=== PATIENT | male | born 1990 | race Caucasian/White ===

== ENCOUNTER → 2017-09-24 | Outpatient (CLI) | payer OTHER ==
--- NOTE | 2017-09-24 09:20 | CT ---
EXAMINATION TYPE: CT wrist LT wo con DATE OF EXAM: 09/24/2017 COMPARISON: NONE HISTORY: Left wrist pain CT DLP: 100.1 mGycm Automated exposure control for dose reduction was used. 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 Subchondral cysts are seen of the distal scaphoid pole. No acute fracture line is iden tified. Evaluation of the tendons and muscles are limited on CT. There is no evidence of tendon discontinuity . The patient's stated area of pain marked with a BB overlies compartment I containing the extensor p ollicis brevis and abductor pollicis longus tendons, however no gross abnormality on CT is identified of these tendons. No focal soft tissue swelling, inflammatory change within the subcutaneous soft ti ssues, or focal fluid collection is seen. IMPRESSION: 1. 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 2. THE PATIENT'S AREA OF PAIN IS LOCATED OVER COMPARTMENT I CONTAINING THE EXTENSOR POLLICIS BREVIS A ND ABDUCTOR POLLICIS LONGUS TENDONS, HOWEVER THESE TENDONS ARE POORLY EVALUATED ON CT AND BETTER EVAL UATED ON MR.
== END | disposition home or self-care (01) ==
LOC: RADCTMAIN 08:02
PROVIDERS: ATTEND Plastic Surgery
DX: S62.002D Unspecified fracture of navicular [scaphoid] bone of left wrist, subsequent encounter for fracture with routine healing (principal)

== ENCOUNTER 2017-10-05 16:05 | Emergency (ER) | payer OTHER ==
[2017-10-05 16:12] VITALS: BP 132/81; PULSE 84; RESP 20; TEMP 98.3
--- NOTE | 2017-10-05 16:21 | ED ---
URI HPI - General Chief Complaint: Upper Respiratory Infection Stated Complaint: Flu Symptoms Time Seen by Provider: 10/05/17 16:15 Source: patient, RN notes reviewed Mode of arrival: ambulatory Limitations: no limitations - History of Present Illness Initial Comments: 27-year-old male presents emergency Department chief complaint cough congestion fever. Patient states symptoms started yesterday did have an episode of vomiting yesterday no vomiting today. Patient states he took ibuprofen just prior arrival. Patient states he hurts all over and is concerned about influenza. Patient has NO KNOWN DRUG ALLERGIESin the Past medical history. Denies ear pain, sore throat. Patient states his cough is dry and nonproductive. - Related Data Previous Rx's Medication Instructions Recorded Oseltamivir [Tamiflu] 75 mg PO Q12HR #10 cap 10/05/17 Allergies Allergy/AdvReac Type Severity Reaction Status Date / Time No Known Allergies Allergy Verified 10/05/17 16:12 Review of Systems ROS Statement: Those systems with pertinent positive or pertinent negative responses have been documented in the HPI. ROS Other: All systems not noted in ROS Statement are negative. Past Medical History Past Medical History: No Reported History History of Any Multi-Drug Resistant Organisms: None Reported Past Surgical History: No Surgical Hx Reported Past Psychological History: Anxiety Smoking Status: Never smoker Past Alcohol Use History: None Reported Past Drug Use History: None Reported General Exam Limitations: no limitations General appearance: alert, in no apparent distress Head exam: Present: atraumatic, normocephalic, normal inspection Eye exam: Present: normal appearance, PERRL, EOMI. Absent: scleral icterus, conjunctival injection, periorbital swelling ENT exam: Present: normal exam, normal oropharynx, mucous membranes moist, TM's normal bilaterally, normal external ear exam Neck exam: Present: normal inspection, full ROM. Absent: tenderness, meningismus, lymphadenopathy Respiratory exam: Present: normal lung sounds bilaterally. Absent: respiratory distress, wheezes, rales, rhonchi, stridor Cardiovascular Exam: Present: regular rate, normal rhythm, normal heart sounds. Absent: systolic murmur, diastolic murmur, rubs, gallop, clicks Neurological exam: Present: alert, oriented X3, CN II-XII intact Skin exam: Present: warm, dry, intact, normal color. Absent: rash Course Vital Signs 10/05/17 16:10 Temperature 98.3 F Pulse Rate 84 Respiratory 20 Rate Blood Pressure 132/81 O2 Sat by Pulse 98 Oximetry Medical Decision Making - Medical Decision Making 27-year-old male presented for fever cough congestion bodyaches. Patient is influenza A positive. Patient was given a prescription for Tamiflu we discussed all Motrin treatment for fever return for any worsening symptoms. Chest x-ray reviewed no acute abnormality. Disposition Clinical Impression: Influenza Disposition: HOME SELF-CARE Condition: Stable Instructions: Influenza (ED) Additional Instructions: Please return to the Emergency Department if symptoms worsen or any other concerns. Prescriptions: Oseltamivir [Tamiflu] 75 mg PO Q12HR #10 cap Referrals: Donnie Carver MD [Primary Care Provider] - 1-2 days Time of Disposition: 16:44
--- NOTE | 2017-10-05 16:34 | XR ---
EXAMINATION TYPE: XR chest 2V DATE OF EXAM: 10/05/2017 COMPARISON: NONE INDICATION: Cough, pain congestion x2 days TECHNIQUE: Frontal and lateral views of the chest are obtained. FINDINGS: The heart size is normal. The pulmonary vasculature is normal. The lungs are clear. IMPRESSION: 1. No acute pulmonary process.
== END 2017-10-05 16:54 | disposition home or self-care (01) ==
LOC: EC 16:05
DX: J10.1 Influenza due to other identified influenza virus with other respiratory manifestations (principal)
CPT/HCPCS: 71046; 87502; 99283

== ENCOUNTER 2017-10-08 04:34 | Emergency (ER) | payer OTHER ==
[2017-10-08] MEDS ORDERED: MORPHINE SULFATE 4 MG/ML SYRINGE IV STA ×2 (04:58→05:51)
[2017-10-08] MEDS ORDERED: KETOROLAC 30 MG/ML 1 ML VIAL IVP STA (04:58)
[2017-10-08 05:06] LABS: HCT 40.9 % (39.0-53.0); HGB 14.9 gm/dL (13.0-17.5); MCH 29.7 pg (25.0-35.0); MCHC 36.4 g/dL (31.0-37.0); MCV 81.5 fL (80.0-100.0); Mean Platelet Volume 7.8; Platelet Count 223 k/uL (150-450); RBC 5.02 m/uL (4.30-5.90); RDW 11.7 % (11.5-15.5); WBC 4.7 k/uL (3.8-10.6)
--- NOTE | 2017-10-08 05:18 | XR ---
EXAM: XR Abdomen, 1 View CLINICAL HISTORY: ITS.REASON XR Reason: abdominal pain TECHNIQUE: Frontal supine view of the abdomen/pelvis. COMPARISON: None. FINDINGS: Intraperitoneal space: No evidence of free air. Gastrointestinal tract: Unremarkable. No dilation. Bones/joints: Unremarkable. IMPRESSION: No acute findings.
[2017-10-08 05:21] LABS: ALT 37 U/L (21-72); AST 23 U/L (17-59); Albumin 4.4 g/dL (3.5-5.0); Alkaline Phosphatase 86 U/L (38-126); Amylase 46 U/L (30-110); Anion Gap 14 mmol/L; Blood Urea Nitrogen 20 mg/dL (9-20); Calcium 9.5 mg/dL (8.4-10.2); Carbon Dioxide 25 mmol/L (22-30); Chloride 102 mmol/L (98-107); Glucose 136 mg/dL (74-99); Lipase 189 U/L (23-300); Potassium 3.3 mmol/L (3.5-5.1); Sodium 141 mmol/L (137-145); Total Bilirubin 0.9 mg/dL (0.2-1.3); Total Protein 6.8 g/dL (6.3-8.2)
[2017-10-08 05:23] LABS: Lymphocytes # (M) 2.87 k/uL (1.0-4.8); Monocytes # (M) 0.71 k/uL (0-1.0); Neutrophils # (M) 1.13 k/uL (1.3-7.7); Neutrophils % (M) 24 %; Nucleated Red Blood Cells 0 /100 WBC (0-0); Reactive Lymphocytes Present; Total Cells Counted 100
[2017-10-08 06:17] LABS: Appearance,Urine Clear (Clear); Bilirubin,Urine Negative (Negative); Blood,Urine Large (Negative); Color,Urine Yellow; Glucose,Urine (UA) Negative (Negative); Ketones,Urine 1+ (Negative); Leukocyte Esterase,Urine Negative (Negative); Mucus,Urine Few /hpf; Nitrite,Urine Negative (Negative); PH, Urine 6.5 (5.0-8.0); Protein,Urine Trace (Negative); RBC,Urine >182 /hpf (0-5); Specific Gravity,Urine 1.022 (1.001-1.035); WBC,Urine 15 /hpf (0-5)
[2017-10-08] MEDS ORDERED: TAMSULOSIN 0.4 MG CAP.ER.24H PO STA (06:57)
[2017-10-08] MEDS ORDERED: LEVOFLOXACIN 750 MG TAB PO STA (06:57)
--- NOTE | 2017-10-08 07:22 | ED ---
Abdominal Pain HPI - General Chief Complaint: Abdominal Pain Stated Complaint: KIDNEY PAIN Time Seen by Provider: 10/08/17 04:47 Source: patient Mode of arrival: ambulatory Limitations: no limitations - History of Present Illness Initial Comments: This patient is 27-year-old man with previous history of kidney stones who presents with the sudden onset of flank pain that he states is identical to previous episode of kidney stone. He also states that he believes he had seen a little bit of blood in his urine. The patient denies any other symptoms. MD Complaint: flank pain -: minutes(s) Location: L flank Radiation: none Migration to: no migration Severity: severe Quality: sharp Consistency: constant Improves With: nothing Worsens With: nothing Associated Symptoms: nausea - Related Data Home Medications Medication Instructions Recorded Confirmed Hydrocodone/Acetaminophen [[place] 1 tab PO Q6HR PRN 10/09/17 10/10/17 5-325] Previous Rx's Medication Instructions Recorded Oseltamivir [Tamiflu] 75 mg PO Q12HR #10 cap 10/05/17 Ciprofloxacin HCl [Cipro] 500 mg PO Q12HR #14 tablet 10/08/17 Tamsulosin [Flomax] 0.4 mg PO DAILY #14 cap 10/08/17 Ketorolac [Toradol] 10 mg PO Q6HR #15 tab 10/09/17 HYDROcodone/APAP 10-325MG [[place] 1 tab PO Q4HR PRN #20 tab 10/10/17 10-325] Allergies Allergy/AdvReac Type Severity Reaction Status Date / Time No Known Allergies Allergy Verified 10/10/17 00:32 Review of Systems ROS Statement: Those systems with pertinent positive or pertinent negative responses have been documented in the HPI. ROS Other: All systems not noted in ROS Statement are negative. Constitutional: Denies: fever, chills Respiratory: Denies: cough, dyspnea Cardiovascular: Denies: chest pain, palpitations, edema Gastrointestinal: Reports: abdominal pain, nausea. Denies: vomiting, diarrhea Genitourinary: Reports: hematuria. Denies: dysuria Musculoskeletal: Denies: back pain Skin: Denies: rash Neurological: Denies: headache, weakness, numbness Past Medical History Past Medical History: No Reported History History of Any Multi-Drug Resistant Organisms: None Reported Past Surgical History: No Surgical Hx Reported Past Psychological History: Anxiety Smoking Status: Never smoker Past Alcohol Use History: None Reported Past Drug Use History: Marijuana General Exam Limitations: no limitations General appearance: alert, in no apparent distress Head exam: Present: atraumatic, normocephalic Eye exam: Present: normal appearance. Absent: scleral icterus, conjunctival injection ENT exam: Present: normal oropharynx Respiratory exam: Present: normal lung sounds bilaterally. Absent: respiratory distress, wheezes, rales, rhonchi, stridor Cardiovascular Exam: Present: regular rate, normal rhythm, normal heart sounds. Absent: systolic murmur, diastolic murmur, rubs, gallop GI/Abdominal exam: Present: soft. Absent: distended, tenderness, guarding, rebound, rigid, mass Extremities exam: Present: normal inspection, normal capillary refill. Absent: pedal edema, calf tenderness Back exam: Present: CVA tenderness (L). Absent: CVA tenderness (R) Neurological exam: Present: alert Skin exam: Present: warm, dry, intact, normal color. Absent: rash Course Vital Signs 10/08/17 10/08/17 04:37 07:37 Temperature 97.4 F L 97.0 F L Pulse Rate 108 H 60 Respiratory 28 H 17 Rate Blood Pressure 136/65 113/63 O2 Sat by Pulse 100 98 Oximetry Medical Decision Making - Lab Data Result diagrams: 10/08/17 04:55 10/08/17 04:55 Lab Results 10/08/17 10/08/17 10/08/17 Range/Units 04:55 04:55 05:46 WBC 4.7 (3.8-10.6) k/uL RBC 5.02 (4.30-5.90) m/uL Hgb 14.9 (13.0-17.5) gm/dL Hct 40.9 (39.0-53.0) % MCV 81.5 (80.0-100.0) fL MCH 29.7 (25.0-35.0) pg MCHC 36.4 (31.0-37.0) g/dL RDW 11.7 (11.5-15.5) % Plt Count 223 (150-450) k/uL Neutrophils % (Manual) 24 % Lymphocytes % (Manual) 61 % Monocytes % (Manual) 15 % Neutrophils # (Manual) 1.13 L (1.3-7.7) k/uL Lymphocytes # (Manual) 2.87 (1.0-4.8) k/uL Monocytes # (Manual) 0.71 (0-1.0) k/uL Nucleated RBCs 0 (0-0) /100 WBC Manual Slide Review Performed Reactive Lymphocytes Present Sodium 141 (137-145) mmol/L Potassium 3.3 L (3.5-5.1) mmol/L Chloride 102 (98-107) mmol/L Carbon Dioxide 25 (22-30) mmol/L Anion Gap 14 mmol/L BUN 20 (9-20) mg/dL Creatinine 0.98 (0.66-1.25) mg/dL Est GFR (MDRD) Af Amer >60 (>60 ml/min/1.73 sqM) Est GFR (MDRD) Non-Af >60 (>60 ml/min/1.73 sqM) Glucose 136 H (74-99) mg/dL Calcium 9.5 (8.4-10.2) mg/dL Total Bilirubin 0.9 (0.2-1.3) mg/dL AST 23 (17-59) U/L ALT 37 (21-72) U/L Alkaline Phosphatase 86 (38-126) U/L Total Protein 6.8 (6.3-8.2) g/dL Albumin 4.4 (3.5-5.0) g/dL Amylase 46 (30-110) U/L Lipase 189 (23-300) U/L Urine Color Yellow Urine Appearance Clear (Clear) Urine pH 6.5 (5.0-8.0) Ur Specific [place] 1.022 (1.001-1.035) Urine Protein Trace H (Negative) Urine Glucose (UA) Negative (Negative) Urine Ketones 1+ H (Negative) Urine Blood Large H (Negative) Urine Nitrite Negative (Negative) Urine Bilirubin Negative (Negative) Urine Urobilinogen 2.0 (<2.0) mg/dL Ur Leukocyte Esterase Negative (Negative) Urine RBC >182 H (0-5) /hpf Urine WBC 15 H (0-5) /hpf Urine Mucus Few H (None) /hpf Disposition Clinical Impression: Renal colic Disposition: HOME SELF-CARE Condition: Good Instructions: Renal Colic (ED) Prescriptions: Ciprofloxacin HCl [Cipro] 500 mg PO Q12HR #14 tablet Tamsulosin [Flomax] 0.4 mg PO DAILY #14 cap Referrals: Donnie Carver MD [Primary Care Provider] - 1-2 days
[2017-10-08 07:38] VITALS: BP 113/63; PULSE 60; RESP 17; TEMP 97
== END 2017-10-08 07:37 | disposition home or self-care (01) ==
LOC: EC 04:34
DX: N23 Unspecified renal colic (principal)
CPT/HCPCS: 36415; 80053; 82150; 83690; 85025; 81001; 74018; 99284; J2270; J1885

== ENCOUNTER 2017-10-09 18:07 | Emergency (ER) | payer OTHER ==
[2017-10-09] MEDS ORDERED: ONDANSETRON 4 MG/2 ML VIAL IVP STA (18:42)
[2017-10-09] MEDS ORDERED: MORPHINE SULFATE 4 MG/ML SYRINGE IV STA (18:42)
[2017-10-09] MEDS ORDERED: SODIUM CHLORIDE 0.9% 2,000 ML IV STA (18:42)
[2017-10-09] MEDS ORDERED: KETOROLAC 30 MG/ML 1 ML VIAL IVP STA (18:42)
--- NOTE | 2017-10-09 18:53 | ED ---
General Adult HPI - General Chief complaint: Abdominal Pain Stated complaint: Abd Pain Time Seen by Provider: 10/09/17 18:10 Source: patient, RN notes reviewed Mode of arrival: ambulatory Limitations: no limitations - History of Present Illness Initial comments: This a 27-year-old male who presents emergency Department with the complaint of right-sided flank pain. Patient states he was here yesterday and diagnosed with a urinary tract infection. Patient states he does have a history of kidney stones. Patient states before he came in he was very nauseated and vomited times one. Patient states palpating his abdomen does not increase the pain. Patient states mostly in the right CVA area. Patient denies any fever chills. Patient states her has been some blood in the urine. Patient denies chest pain difficult breathing or shortness of breath. - Related Data Home Medications Medication Instructions Recorded Confirmed Hydrocodone/Acetaminophen [[place] 1 tab PO Q6HR PRN 10/09/17 10/09/17 5-325] Previous Rx's Medication Instructions Recorded Oseltamivir [Tamiflu] 75 mg PO Q12HR #10 cap 10/05/17 Ciprofloxacin HCl [Cipro] 500 mg PO Q12HR #14 tablet 10/08/17 Tamsulosin [Flomax] 0.4 mg PO DAILY #14 cap 10/08/17 Ketorolac [Toradol] 10 mg PO Q6HR #15 tab 10/09/17 Allergies Allergy/AdvReac Type Severity Reaction Status Date / Time No Known Allergies Allergy Verified 10/09/17 18:44 Review of Systems ROS Statement: Those systems with pertinent positive or pertinent negative responses have been documented in the HPI. ROS Other: All systems not noted in ROS Statement are negative. Past Medical History Past Medical History: No Reported History Additional Past Medical History / Comment(s): kidney stones History of Any Multi-Drug Resistant Organisms: None Reported Past Surgical History: No Surgical Hx Reported Past Psychological History: Anxiety Smoking Status: Never smoker Past Alcohol Use History: None Reported Past Drug Use History: Marijuana General Exam - General Exam Comments Initial Comments: GENERAL: Patient is well-developed and well-nourished. Patient is nontoxic and well- hydrated and is in moderate distress. ENT: Neck is soft and supple. No significant lymphadenopathy is noted. Oropharynx is clear. Moist mucous membranes. Neck has full range of motion without eliciting any pain. EYES: The sclera were anicteric and conjunctiva were pink and moist. Extraocular movements were intact and pupils were equal round and reactive to light. Eyelids were unremarkable. PULMONARY: Unlabored respirations. Good breath sounds bilaterally. No audible rales rhonchi or wheezing was noted. CARDIOVASCULAR: There is a regular rate and rhythm without any murmurs gallops or rubs. ABDOMEN: Soft and nontender with normal bowel sounds. No palpable organomegaly was noted. There is no palpable pulsatile mass. SKIN: Skin is clear with no lesions or rashes and otherwise unremarkable. NEUROLOGIC: Patient is alert and oriented x3. Cranial nerves II through XII are grossly intact. Motor and sensory are also intact. Normal speech, volume and content. Symmetrical smile. MUSCULOSKELETAL: Normal extremities with adequate strength and full range of motion. LYMPHATICS: No significant lymphadenopathy is noted PSYCHIATRIC: Normal psychiatric evaluation. Limitations: no limitations Course Vital Signs 10/09/17 18:12 Temperature 97.5 F L Pulse Rate 78 Respiratory 28 H Rate Blood Pressure 122/76 O2 Sat by Pulse 100 Oximetry Medical Decision Making - Medical Decision Making CAT scan showed a 3 mm kidney stone. - Lab Data Result diagrams: 10/09/17 19:03 10/09/17 19:03 Lab Results 10/09/17 10/09/17 10/09/17 Range/Units 19:03 19:03 19:03 WBC 4.6 (3.8-10.6) k/uL RBC 5.31 (4.30-5.90) m/uL Hgb 15.5 (13.0-17.5) gm/dL Hct 43.6 (39.0-53.0) % MCV 82.0 (80.0-100.0) fL MCH 29.2 (25.0-35.0) pg MCHC 35.6 (31.0-37.0) g/dL RDW 11.7 (11.5-15.5) % Plt Count 230 (150-450) k/uL Neutrophils % 45 % Lymphocytes % 44 % Monocytes % 6 % Eosinophils % 1 % Basophils % 1 % Neutrophils # 2.1 (1.3-7.7) k/uL Lymphocytes # 2.0 (1.0-4.8) k/uL Monocytes # 0.3 (0-1.0) k/uL Eosinophils # 0.1 (0-0.7) k/uL Basophils # 0.0 (0-0.2) k/uL Sodium 140 (137-145) mmol/L Potassium 3.8 (3.5-5.1) mmol/L Chloride 104 (98-107) mmol/L Carbon Dioxide 18 L (22-30) mmol/L Anion Gap 18 mmol/L BUN 15 (9-20) mg/dL Creatinine 1.03 (0.66-1.25) mg/dL Est GFR (CKD-EPI)AfAm >90 (>60 ml/min/1.73 sqM) Est GFR (CKD-EPI)NonAf >90 (>60 ml/min/1.73 sqM) Glucose 112 H (74-99) mg/dL Calcium 10.2 (8.4-10.2) mg/dL Total Bilirubin 1.7 H (0.2-1.3) mg/dL AST 22 (17-59) U/L ALT 32 (21-72) U/L Alkaline Phosphatase 82 (38-126) U/L Total Protein 7.4 (6.3-8.2) g/dL Albumin 4.8 (3.5-5.0) g/dL Amylase 91 (30-110) U/L Lipase 349 H (23-300) U/L Heterophile Antibody Negative (Negative) Disposition Clinical Impression: Kidney stone, Renal colic Disposition: HOME SELF-CARE Condition: Good Instructions: Renal Colic (ED) Prescriptions: Ketorolac [Toradol] 10 mg PO Q6HR #15 tab Referrals: Donnie Carver MD [Primary Care Provider] - 1-2 days Time of Disposition: 20:06
[2017-10-09 19:24] LABS: Basophils % (A) 1 %; Eosinophils # (A) 0.1 k/uL (0-0.7); Eosinophils % (A) 1 %; HCT 43.6 % (39.0-53.0); HGB 15.5 gm/dL (13.0-17.5); Lymphocytes % (A) 44 %; MCH 29.2 pg (25.0-35.0); MCHC 35.6 g/dL (31.0-37.0); Mean Platelet Volume 7.5; Monocytes # (A) 0.3 k/uL (0-1.0); Monocytes % (A) 6 %; Neutrophils # (A) 2.1 k/uL (1.3-7.7); Neutrophils % (A) 45 %; Platelet Count 230 k/uL (150-450); RBC 5.31 m/uL (4.30-5.90); RDW 11.7 % (11.5-15.5); WBC 4.6 k/uL (3.8-10.6)
[2017-10-09 19:40] LABS: ALT 32 U/L (21-72); AST 22 U/L (17-59); Albumin 4.8 g/dL (3.5-5.0); Alkaline Phosphatase 82 U/L (38-126); Amylase 91 U/L (30-110); Anion Gap 18 mmol/L; Blood Urea Nitrogen 15 mg/dL (9-20); Calcium 10.2 mg/dL (8.4-10.2); Carbon Dioxide 18 mmol/L (22-30); Chloride 104 mmol/L (98-107); Glucose 112 mg/dL (74-99); Lipase 349 U/L (23-300); Potassium 3.8 mmol/L (3.5-5.1); Sodium 140 mmol/L (137-145); Total Bilirubin 1.7 mg/dL (0.2-1.3); Total Protein 7.4 g/dL (6.3-8.2)
--- NOTE | 2017-10-09 19:57 | CT ---
EXAMINATION TYPE: CT abdomen pelvis wo con DATE OF EXAM: 10/09/2017 HISTORY: Right sided flank pain with hematuria CT DLP: 328.7 mGycm. Automated Exposure Control for Dose Reduction was Utilized. TECHNIQUE: CT scan of the abdomen and pelvis is performed without oral or IV contrast. COMPARISON: CT abdomen and pelvis May 25, 2013 FINDINGS: Within the limitations of a non-contrast study, the following observations are made. LUNG BASES: No significant abnormality is appreciated. LIVER/GB: No significant abnormality is appreciated. PANCREAS: No significant abnormality is seen. SPLEEN: No significant abnormality is seen. ADRENALS: No significant abnormality is seen. KIDNEYS: No left-sided renal calculus or hydronephrosis is present. On current study there single 2 m m calculus lower pole level right kidney coronal image 47. On current study there is obstructing 3 mm calculus at right UVJ on axial image 135, this is causing asymmetric mild to minimal right-sided hyd ronephrosis. BOWEL: There are scattered diverticula throughout the colon most prominent at sigmoid colon level. Th ere is no convincing CT evidence for acute diverticulitis. GENITAL ORGANS: No gross abnormality seen. LYMPH NODES: No greater than 1cm abdominal or pelvic lymph nodes are appreciated. OSSEOUS STRUCTURES: No significant abnormality is seen. OTHER: No significant additional abnormality is seen. IMPRESSION: Mild to minimal right-sided hydronephrosis due to recurrent obstructing 3 mm calculus at right UVJ.
[2017-10-09] MEDS ORDERED: MORPHINE SULFATE 4 MG/ML SYRINGE IVP STA (20:03)
[2017-10-09 20:18] VITALS: RESP 18
[2017-10-09 20:38] VITALS: BP 113/57; PULSE 56; TEMP 98.9
== END 2017-10-09 20:35 | disposition home or self-care (01) ==
LOC: EC 18:07
DX: N20.0 Calculus of kidney (principal); Z87.442 Personal history of urinary calculi
CPT/HCPCS: 36415; 80053; 82150; 83690; 85025; 86308; 74176; 99284; 96374; 96375 ×2; 96376; 96361; J2270; J2405; J1885; 99285

== ENCOUNTER 2017-10-10 00:26 | Emergency (ER) | payer OTHER ==
[2017-10-10 00:32] VITALS: RESP 18
[2017-10-10] MEDS ORDERED: MORPHINE SULFATE 4 MG/ML SYRINGE IM STA (00:55)
[2017-10-10] MEDS ORDERED: oxyCODONE-APAP 5-325MG 1 EACH TAB PO STA (01:49)
--- NOTE | 2017-10-10 01:52 | ED ---
Abdominal Pain HPI - General Chief Complaint: Abdominal Pain Stated Complaint: R Flank Pain Time Seen by Provider: 10/10/17 00:43 Source: patient, RN notes reviewed Mode of arrival: ambulatory Limitations: no limitations - History of Present Illness Initial Comments: 27-year-old male presents emergency Department chief complaint right flank pain. Patient's had 2 prior ER visits for similar symptoms. Patient was diagnosed with kidney stone. Patient has 3 mm stone on the right. Patient denies any current nausea vomiting diarrhea constipation. Patient states it's only Pain problems. He did try taking her [place] prior arrival had minimal relief of his symptoms. Patient states he felt well when he left the emergency department prior. - Related Data Home Medications Medication Instructions Recorded Confirmed Hydrocodone/Acetaminophen [[place] 1 tab PO Q6HR PRN 10/09/17 10/10/17 5-325] Previous Rx's Medication Instructions Recorded Oseltamivir [Tamiflu] 75 mg PO Q12HR #10 cap 10/05/17 Ciprofloxacin HCl [Cipro] 500 mg PO Q12HR #14 tablet 10/08/17 Tamsulosin [Flomax] 0.4 mg PO DAILY #14 cap 10/08/17 Ketorolac [Toradol] 10 mg PO Q6HR #15 tab 10/09/17 HYDROcodone/APAP 10-325MG [[place] 1 tab PO Q4HR PRN #20 tab 10/10/17 10-325] Allergies Allergy/AdvReac Type Severity Reaction Status Date / Time No Known Allergies Allergy Verified 10/10/17 00:32 Review of Systems ROS Statement: Those systems with pertinent positive or pertinent negative responses have been documented in the HPI. ROS Other: All systems not noted in ROS Statement are negative. Past Medical History Past Medical History: No Reported History Additional Past Medical History / Comment(s): kidney stones History of Any Multi-Drug Resistant Organisms: None Reported Past Surgical History: No Surgical Hx Reported Past Psychological History: Anxiety Smoking Status: Never smoker Past Alcohol Use History: None Reported Past Drug Use History: Marijuana General Exam Limitations: no limitations General appearance: alert, in no apparent distress Head exam: Present: atraumatic, normocephalic, normal inspection Neck exam: Present: normal inspection. Absent: tenderness, meningismus, lymphadenopathy Respiratory exam: Present: normal lung sounds bilaterally. Absent: respiratory distress, wheezes, rales, rhonchi, stridor Cardiovascular Exam: Present: regular rate, normal rhythm, normal heart sounds. Absent: systolic murmur, diastolic murmur, rubs, gallop, clicks GI/Abdominal exam: Present: soft, normal bowel sounds. Absent: distended, tenderness, guarding, rebound, rigid Back exam: Present: CVA tenderness (R). Absent: CVA tenderness (L) Course Vital Signs 10/10/17 00:29 Temperature 97.9 F Pulse Rate 66 Respiratory 18 Rate Blood Pressure 127/91 O2 Sat by Pulse 96 Oximetry - Reevaluation(s) Reevaluation #1: 10/10/17 01:50 Patient reevaluated after IM shot he is improved. Medical Decision Making - Medical Decision Making 27-year-old male presented for right flank pain. Patient has right ureteral calculi. Patient was given IM morphine which has helped. Patient be given Percocet before he leaves and a prescription for [place] 10/25. Return parameters were discussed. Disposition Clinical Impression: Ureteral calculi, Renal colic Disposition: HOME SELF-CARE Condition: Stable Instructions: Renal Colic (ED) Additional Instructions: Please return to the Emergency Department if symptoms worsen or any other concerns. Prescriptions: HYDROcodone/APAP 10-325MG [[place] 10-325] 1 tab PO Q4HR PRN #20 tab PRN Reason: pain Referrals: Donnie Carver MD [Primary Care Provider] - 1-2 days Herbert Ordonez MD [STAFF PHYSICIAN] - 1-2 days Time of Disposition: 01:52
[2017-10-10 02:25] VITALS: BP 116/70; PULSE 56; TEMP 97.4
== END 2017-10-10 02:25 | disposition home or self-care (01) ==
LOC: EC 00:26
DX: N20.1 Calculus of ureter (principal); N23 Unspecified renal colic; Z87.442 Personal history of urinary calculi
CPT/HCPCS: 99284; 96372; J2270

== ENCOUNTER 2017-10-10 20:19 | Emergency (ER) | payer OTHER ==
[2017-10-10 20:25] VITALS: TEMP 97.7
[2017-10-10] MEDS ORDERED: MORPHINE SULFATE 4 MG/ML SYRINGE IVP STA ×2 (21:11→23:00)
[2017-10-10] MEDS ORDERED: KETOROLAC 30 MG/ML 1 ML VIAL IVP STA (21:11)
[2017-10-10] MEDS ORDERED: ONDANSETRON 4 MG/2 ML VIAL IVP STA ×2 (21:11→22:29)
--- NOTE | 2017-10-10 21:16 | ED ---
Abdominal Pain HPI - General Chief Complaint: Abdominal Pain Stated Complaint: back pain/nausea Time Seen by Provider: 10/10/17 20:32 Source: patient Mode of arrival: ambulatory Limitations: no limitations - History of Present Illness Initial Comments: 27-year-old male patient presents to the emergency department today for complaints of right flank pain. Patient states he was diagnosed with a kidney stone last evening. States that he has been vomiting all day and unable to take his pain medication. He states that the pain is severe. He denies any abdominal pain with this. Denies any hematuria, dysuria, urinary frequency, urinary urgency, urinary retention. States he has been straining his urine and has not gotten a stone out. He has not yet made an appointment with urologist. He denies any fevers or chills with this. Denies any constipation or diarrhea. He denies any history of kidney stones. Patient denies any recent rash, fever, chills, shortness breath, chest pain, diarrhea, constipation, back pain, numbness, tingling, dizziness, weakness, headache, visual changes, or any other complaints. - Related Data Previous Rx's Medication Instructions Recorded Oseltamivir [Tamiflu] 75 mg PO Q12HR #10 cap 10/05/17 Ciprofloxacin HCl [Cipro] 500 mg PO Q12HR #14 tablet 10/08/17 Tamsulosin [Flomax] 0.4 mg PO DAILY #14 cap 10/08/17 Ketorolac [Toradol] 10 mg PO Q6HR #15 tab 10/09/17 HYDROcodone/APAP 10-325MG [[place] 1 tab PO Q4HR PRN #20 tab 10/10/17 10-325] Ibuprofen [Motrin] 600 mg PO Q8HR PRN #30 tab 10/10/17 Ondansetron [Zofran ODT] 4 mg PO Q8HR PRN #10 tab 10/10/17 Allergies Allergy/AdvReac Type Severity Reaction Status Date / Time No Known Allergies Allergy Verified 10/10/17 20:57 Review of Systems ROS Statement: Those systems with pertinent positive or pertinent negative responses have been documented in the HPI. ROS Other: All systems not noted in ROS Statement are negative. Past Medical History Past Medical History: No Reported History Additional Past Medical History / Comment(s): kidney stones History of Any Multi-Drug Resistant Organisms: None Reported Past Surgical History: No Surgical Hx Reported Past Psychological History: Anxiety Smoking Status: Never smoker Past Alcohol Use History: None Reported Past Drug Use History: Marijuana General Exam Limitations: no limitations General appearance: alert, in no apparent distress, other (This is a well- developed, well-nourished adult male patient in no acute distress. Vital signs upon presentation are temperature 97.7F, pulse 69, respirations 22, blood pressure 129/82, pulse ox 97% on room air.) Eye exam: Present: normal appearance, PERRL, EOMI. Absent: scleral icterus, conjunctival injection, periorbital swelling ENT exam: Present: normal exam, normal oropharynx, mucous membranes moist Respiratory exam: Present: normal lung sounds bilaterally. Absent: respiratory distress, wheezes, rales, rhonchi, stridor Cardiovascular Exam: Present: regular rate, normal rhythm, normal heart sounds. Absent: systolic murmur, diastolic murmur, rubs, gallop, clicks GI/Abdominal exam: Present: soft, normal bowel sounds. Absent: distended, tenderness, guarding, rebound, rigid Back exam: Present: normal inspection. Absent: CVA tenderness (R), CVA tenderness (L) Psychiatric exam: Present: normal affect, normal mood Skin exam: Present: warm, dry, intact, normal color. Absent: rash Course Vital Signs 10/10/17 10/10/17 10/10/17 20:21 22:02 23:10 Temperature 97.7 F Pulse Rate 69 55 L 57 L Respiratory 22 20 18 Rate Blood Pressure 129/82 112/74 121/70 O2 Sat by Pulse 100 99 Oximetry Medical Decision Making - Medical Decision Making 27-year-old male patient presented to the emergency department today for continued right flank pain. Patient was diagnosed with a kidney stone last evening. Physical examination is unremarkable. Labs were reviewed and showed normal kidney function. His urinalysis is negative for any blood or evidence of infection. We did give patient IV fluids, pain medication, and nausea medication here in the department. Patient has not vomited and did tolerate oral intake. Patient is complaining of pain still to the right flank. We'll give 1 more dose of morphine here in the department. He'll be discharged with a prescription for ibuprofen and Zofran. He already has [place] 10/325 and Flomax at home. He is encouraged to increase his fluids. He is instructed to pop with urology as soon as possible. He is instructed to return here immediately for any new, worsening, or concerning symptoms. He verbalizes understanding and agrees this plan. - Lab Data Result diagrams: 10/10/17 21:05 10/10/17 21:05 Lab Results 10/10/17 10/10/17 10/10/17 Range/Units 21:05 21:05 21:30 WBC 4.2 (3.8-10.6) k/uL RBC 4.93 (4.30-5.90) m/uL Hgb 14.3 (13.0-17.5) gm/dL Hct 40.3 (39.0-53.0) % MCV 81.7 (80.0-100.0) fL MCH 28.9 (25.0-35.0) pg MCHC 35.4 (31.0-37.0) g/dL RDW 11.7 (11.5-15.5) % Plt Count 189 (150-450) k/uL Neutrophils % 46 % Lymphocytes % 45 % Monocytes % 6 % Eosinophils % 2 % Basophils % 0 % Neutrophils # 1.9 (1.3-7.7) k/uL Lymphocytes # 1.9 (1.0-4.8) k/uL Monocytes # 0.3 (0-1.0) k/uL Eosinophils # 0.1 (0-0.7) k/uL Basophils # 0.0 (0-0.2) k/uL Sodium 140 (137-145) mmol/L Potassium 3.6 (3.5-5.1) mmol/L Chloride 106 (98-107) mmol/L Carbon Dioxide 21 L (22-30) mmol/L Anion Gap 13 mmol/L BUN 14 (9-20) mg/dL Creatinine 1.00 (0.66-1.25) mg/dL Est GFR (CKD-EPI)AfAm >90 (>60 ml/min/1.73 sqM) Est GFR (CKD-EPI)NonAf >90 (>60 ml/min/1.73 sqM) Glucose 102 H (74-99) mg/dL Calcium 9.7 (8.4-10.2) mg/dL Total Bilirubin 1.6 H (0.2-1.3) mg/dL AST 21 (17-59) U/L ALT 31 (21-72) U/L Alkaline Phosphatase 65 (38-126) U/L Total Protein 6.4 (6.3-8.2) g/dL Albumin 4.0 (3.5-5.0) g/dL Urine Color Light Yellow Urine Appearance Clear (Clear) Urine pH 7.0 (5.0-8.0) Ur Specific [place] 1.006 (1.001-1.035) Urine Protein Negative (Negative) Urine Glucose (UA) Negative (Negative) Urine Ketones 1+ H (Negative) Urine Blood Negative (Negative) Urine Nitrite Negative (Negative) Urine Bilirubin Negative (Negative) Urine Urobilinogen <2.0 (<2.0) mg/dL Ur Leukocyte Esterase Negative (Negative) Disposition Clinical Impression: Kidney stone on right side Disposition: HOME SELF-CARE Condition: Good Instructions: Kidney Stones (ED), Flank Pain (ED) Additional Instructions: Take Flomax, ibuprofen, [place], and nausea medication as directed. Increase fluid intake. Follow-up with urology as soon as possible. Return here immediately for any new, worsening, or concerning symptoms. Prescriptions: Ibuprofen [Motrin] 600 mg PO Q8HR PRN #30 tab PRN Reason: Pain Ondansetron [Zofran ODT] 4 mg PO Q8HR PRN #10 tab PRN Reason: Nausea Referrals: Donnie Carver MD [Primary Care Provider] - 1-2 days Vince Levine MD [STAFF PHYSICIAN] - 1-2 days Time of Disposition: 23:02
[2017-10-10 21:27] LABS: Basophils % (A) 0 %; Eosinophils # (A) 0.1 k/uL (0-0.7); Eosinophils % (A) 2 %; HCT 40.3 % (39.0-53.0); HGB 14.3 gm/dL (13.0-17.5); Lymphocytes # (A) 1.9 k/uL (1.0-4.8); Lymphocytes % (A) 45 %; MCH 28.9 pg (25.0-35.0); MCHC 35.4 g/dL (31.0-37.0); MCV 81.7 fL (80.0-100.0); Mean Platelet Volume 7.6; Monocytes # (A) 0.3 k/uL (0-1.0); Monocytes % (A) 6 %; Neutrophils # (A) 1.9 k/uL (1.3-7.7); Neutrophils % (A) 46 %; Platelet Count 189 k/uL (150-450); RBC 4.93 m/uL (4.30-5.90); RDW 11.7 % (11.5-15.5); WBC 4.2 k/uL (3.8-10.6)
[2017-10-10 21:38] LABS: Appearance,Urine Clear (Clear); Bilirubin,Urine Negative (Negative); Blood,Urine Negative (Negative); Color,Urine Light Yellow; Glucose,Urine (UA) Negative (Negative); Ketones,Urine 1+ (Negative); Leukocyte Esterase,Urine Negative (Negative); Nitrite,Urine Negative (Negative); Protein,Urine Negative (Negative); Specific Gravity,Urine 1.006 (1.001-1.035); Urobilinogen,Urine <2.0 mg/dL (<2.0)
[2017-10-10 21:57] LABS: ALT 31 U/L (21-72); AST 21 U/L (17-59); Alkaline Phosphatase 65 U/L (38-126); Anion Gap 13 mmol/L; Blood Urea Nitrogen 14 mg/dL (9-20); Calcium 9.7 mg/dL (8.4-10.2); Carbon Dioxide 21 mmol/L (22-30); Chloride 106 mmol/L (98-107); Glucose 102 mg/dL (74-99); Potassium 3.6 mmol/L (3.5-5.1); Sodium 140 mmol/L (137-145); Total Bilirubin 1.6 mg/dL (0.2-1.3); Total Protein 6.4 g/dL (6.3-8.2)
[2017-10-10] MEDS ORDERED: HYDROcodone/APAP 10-325MG 1 EACH TAB PO ONE (22:04)
[2017-10-10 23:12] VITALS: BP 121/70; PULSE 57; RESP 18
== END 2017-10-10 23:17 | disposition home or self-care (01) ==
LOC: EC 20:19
DX: N20.0 Calculus of kidney (principal)
CPT/HCPCS: 96375 ×3; 96376 ×3; 96374 ×2; 99284 ×3; 96372; 36415; 80053; 85025; 81003; J2270; J2405; J1885

== ENCOUNTER 2017-12-13 19:04 | Emergency (ER) | payer OTHER ==
[2017-12-13 19:34] VITALS: RESP 18
[2017-12-13] MEDS ORDERED: ACETAMINOPHEN TAB 325 MG TAB PO STA (20:08)
--- NOTE | 2017-12-13 20:43 | XR ---
EXAMINATION TYPE: XR chest 2V DATE OF EXAM: 12/13/2017 COMPARISON: 10/05/2017 HISTORY: Syncope and cough TECHNIQUE: Frontal and lateral views of the chest are obtained. FINDINGS: Heart and mediastinum are normal. Lungs are clear. Diaphragm is normal. Bony thorax appear s normal. IMPRESSION: Normal chest. No change.
--- NOTE | 2017-12-13 21:58 | CT ---
EXAMINATION TYPE: CT brain wo con DATE OF EXAM: 12/13/2017 COMPARISON: NONE HISTORY: Syncope, ROMERO and dizziness CT DLP: 1011.1 mGycm. Automated Exposure Control for Dose Reduction was Utilized. TECHNIQUE: CT scan of the head is performed without contrast. FINDINGS: Ventricles and sulci appear normal. There is no mass effect nor midline shift. There is no sign of intracranial hemorrhage. The calvarium is intact. CONCLUSION: Negative CT scan of the brain.
--- NOTE | 2017-12-13 22:37 | ED ---
General Adult HPI - General Chief complaint: Syncope Stated complaint: Syncope Time Seen by Provider: 12/13/17 20:02 Source: patient Mode of arrival: ambulatory Limitations: no limitations - History of Present Illness Initial comments: 27-year-old male patient presents to the emergency department today for evaluation of "not feeling right". Patient states that he had a syncopal episode yesterday. States that he was arguing with his girlfriend, was very upset and hyperventilating. States that he became tingly and then passed out. Girlfriend reports he was only out for a few seconds. Patient states that when he woke up today he had a headache and was just feeling generally unwell. Patient states he has had a cough, nasal congestion, and sore throat as well since waking. He states that his mind is blank and he does not feel like himself. Patient did have surgery on his left wrist proximally 3 weeks ago. States he has been taking 2-3 [place] per day since the surgery. States his last [place] was yesterday. He denies any abdominal pain, nausea, vomiting, dizziness , or weakness. Patient denies any recent rash, shortness breath, chest pain, diarrhea, constipation, back pain, hematuria, dysuria, urinary urgency, urinary frequency, visual changes, or any other complaints. - Related Data Home Medications Medication Instructions Recorded Confirmed Amoxicillin 500 mg PO TID 12/13/17 12/13/17 Fluticasone Nasal [place] [Flonase 2 spr EA NOSTRIL DAILY PRN 12/13/17 12/13/17 Nasal [place]] Multivitamins, Thera [Multivitamin 1 tab PO DAILY 12/13/17 12/13/17 (formulary)] Promethazine 6.25MG/5Ml [Phenergan 12.5 mg PO Q6H PRN 12/13/17 12/13/17 Syrup] Allergies Allergy/AdvReac Type Severity Reaction Status Date / Time No Known Allergies Allergy Verified 12/13/17 19:56 Review of Systems ROS Statement: Those systems with pertinent positive or pertinent negative responses have been documented in the HPI. ROS Other: All systems not noted in ROS Statement are negative. Past Medical History Past Medical History: No Reported History Additional Past Medical History / Comment(s): kidney stones History of Any Multi-Drug Resistant Organisms: None Reported Past Surgical History: No Surgical Hx Reported, Orthopedic Surgery Additional Past Surgical History / Comment(s): surgery on left wrist in 2017 Past Psychological History: Anxiety Smoking Status: Never smoker Past Alcohol Use History: None Reported Past Drug Use History: Marijuana General Exam Limitations: no limitations General appearance: alert, in no apparent distress, other Head exam: Present: atraumatic, normocephalic, normal inspection Eye exam: Present: normal appearance, PERRL, EOMI. Absent: scleral icterus, conjunctival injection, periorbital swelling ENT exam: Present: normal exam, normal oropharynx, mucous membranes moist Neck exam: Present: normal inspection, full ROM. Absent: tenderness, meningismus, lymphadenopathy Respiratory exam: Present: normal lung sounds bilaterally. Absent: respiratory distress, wheezes, rales, rhonchi, stridor Cardiovascular Exam: Present: regular rate, normal rhythm, normal heart sounds. Absent: systolic murmur, diastolic murmur, rubs, gallop, clicks GI/Abdominal exam: Present: soft, normal bowel sounds. Absent: distended, tenderness, guarding, rebound, rigid Neurological exam: Present: alert, oriented X3, CN II-XII intact, other ( Strength in all 4 extremities is 5/5) Psychiatric exam: Present: normal affect, normal mood, flat affect Skin exam: Present: warm, dry, intact, normal color. Absent: rash Course Vital Signs 12/13/17 12/13/17 12/13/17 19:27 21:08 22:42 Temperature 100.0 F H 99.2 F 97.8 F Pulse Rate 86 83 74 Respiratory 18 18 18 Rate Blood Pressure 141/80 143/83 143/69 O2 Sat by Pulse 97 97 100 Oximetry 12/14/17 00:48 Temperature 97.8 F Pulse Rate 62 Respiratory 18 Rate Blood Pressure 139/89 O2 Sat by Pulse 98 Oximetry EKG Findings - EKG Comments: EKG Findings:: EKG obtained at 2130 shows normal sinus rhythm with a ventricular rate of 65, MO interval 142, QR temple 88, QT 376, QTC 391. No evidence of ST elevation or depression. Medical Decision Making - Medical Decision Making 27-year-old male patient presented to the emergency department today for evaluation of headache and feeling unwell since waking up this morning. Patient did have a syncopal episode yesterday during argument with his primary he was hyperventilating. Physical examination today is unremarkable. Did test patient for influenza as he does have a low-grade fever and has been coughing. I did discuss how hyperventilation can cause a syncopal episode especially during times of high anxiety. We discussed viral etiology as a cause for his fever, headache, and upper respiratory symptoms. Plan was to discharge patient home however patient and significant other requested CT scanning. Patient reported at that time that his mind felt blank, he was having increased anxiety over the last few weeks, and was not feeling like himself. I did discuss risks versus benefits of the computed tomography scan, they agreed to undergo the test. CT was obtained, no evidence of acute intracranial abnormality was identified. I discussed findings and results with the patient and significant other. Patient then requested evaluation by emergency psychiatric services. He was seen and evaluated, was felt he did not meet inpatient criteria at this time. He will be discharged home to follow-up outpatient with his therapist and outpatient mental health services. Return parameters discussed in detail. He verbalizes understanding and agrees with this plan. - Lab Data Lab Results 12/13/17 Range/Units 20:21 Influenza Type A RNA Not Detected (Not Detectd) Influenza Type B (PCR) Not Detected (Not Detectd) - Radiology Data Radiology results: report reviewed, image reviewed Two-view x-ray of the chest was obtained. Heart mediastinum are normal. Lungs are clear. Diaphragm is normal. Bony thorax appears normal. Impression by Dr. Carl shows normal chest with no change. CT of the brain without contrast was performed. Ventricles and sulci appear normal. There is no mass effect or midline shift. There is no sign of intracranial hemorrhage. The calvarium is intact. Conclusion by Dr. Calr shows negative computed tomography scan of the brain. Disposition Clinical Impression: Syncope, Anxiety, Viral upper respiratory illness Disposition: HOME SELF-CARE Condition: Good Instructions: Syncope (ED), Upper Respiratory Infection (ED) Additional Instructions: Increase fluids. Follow-up with your primary care physician for recheck in 1-2 days. Return here immediately for any new, worsening, or concerning symptoms. Is patient prescribed a controlled substance at d/c from ED?: No Referrals: Donnie Carver MD [Primary Care Provider] - 1-2 days Time of Disposition: 22:37
[2017-12-13 22:49] VITALS: TEMP 97.8
[2017-12-14 00:52] VITALS: BP 139/89; PULSE 62
== END 2017-12-14 00:52 | disposition home or self-care (01) ==
LOC: EC 19:04
DX: J06.9 Acute upper respiratory infection, unspecified (principal); R55 Syncope and collapse; F41.9 Anxiety disorder, unspecified
CPT/HCPCS: 70450; 71046; 82075; 87502; 93005; 99285

== ENCOUNTER → 2018-01-17 | Outpatient (CLI) | payer OTHER ==
--- NOTE | 2018-01-19 10:11 | CT ---
EXAMINATION TYPE: CT upper extremity LT wo con DATE OF EXAM: 01/17/2018 COMPARISON: 09/24/2017 HISTORY: Lt scaphoid fx with ORIF and bone grafting evaluation of healing CT DLP: 91.7 mGycm Automated exposure control for dose reduction was used. FINDINGS: Evaluation of the tendons and muscles are limited on CT scan and nondiagnostic. Grossly There is no e vidence of tendon discontinuity. There is skin thickening and soft tissue edema which may be postsurg ical particularly along the volar aspect of the wrist. There is postsurgical change across a fracture involving the scaphoid bone. No significant callus for mation identified. There remains a nonunion fracture. Remaining osseous structures are intact. There does appear to be a deformity involving the volar surf gato of the distal radius with apparent bone fragment within a lucent lesion. Anterior cortex is disco ntinuous this may be postsurgical or related to previous osseous lesion or fracture. Correlate clinic ally. It does appear to be soft tissue edema. IMPRESSION: 1. 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 2. There is a deformity involving the anterior cortex of the distal radius with apparent bony fragmen t situated within a lucent lesion. Could potentially be postsurgical as it was not seen on the previo us exam of 09/24/2017. Correlate clinically to exclude other etiologies including trauma, osseous lesi on or infection.
== END | disposition home or self-care (01) ==
LOC: RADCTMAIN 13:02
PROVIDERS: ATTEND Plastic Surgery
DX: S62.022K Displaced fracture of middle third of navicular [scaphoid] bone of left wrist, subsequent encounter for fracture with nonunion (principal); Z98.890 Other specified postprocedural states

== ENCOUNTER 2018-12-13 15:17 | Emergency (ER) | payer OTHER ==
[2018-12-13 15:27] VITALS: BP 150/89; PULSE 71; RESP 16; TEMP 98.6
--- NOTE | 2018-12-13 16:45 | XR ---
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 AP view shows prom inent bony defect. There is some heterogeneity of the distal radius compatible with site of bone harv esting. No acute fracture, subluxation, or dislocation is seen. IMPRESSION: 1. 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 Transverse b one defect remains despite the bone graft harvesting from the distal radius. 2. No acute osseous abnormality seen.
--- NOTE | 2018-12-13 16:57 | ED ---
Upper Extremity HPI - General Chief Complaint: Extremity Injury, Upper Stated Complaint: left wrist pain Time Seen by Provider: 12/13/18 15:43 Source: patient Mode of arrival: ambulatory Limitations: no limitations - History of Present Illness Initial Comments: 28-year-old male presented for chief complaint of wrist pain. Patient states he had a scaphoid fracture years ago he states that he had multiple surgeries including a bone graft. He states he still did not have healing of the bone. Patient states that he has chronic pain in the wrist. He states he has limited range motion due to this chronic injury. Pt states there is a nail in the bone. Pt states for the past 3-4 days he feels like his pain has been increased slightly, he gets sharp shooting pain that move s up toward the forearm. He states he feels like possibly the pin is rubbing. Pt presented for evaluation. Pt has numbness tingling or loss sensation. Patient denies any new injury. Patient is a falls or trauma to the wrist. Remaining review of system negative. Upon arrival patient appears well no signs acute distress. - Related Data Home Medications Medication Instructions Recorded Confirmed Amoxicillin 500 mg PO TID 12/13/17 12/13/17 Fluticasone Nasal [place] [Flonase 2 spr EA NOSTRIL DAILY PRN 12/13/17 12/13/17 Nasal [place]] Multivitamins, Thera [Multivitamin 1 tab PO DAILY 12/13/17 12/13/17 (formulary)] Promethazine 6.25MG/5Ml [Phenergan 12.5 mg PO Q6H PRN 12/13/17 12/13/17 Syrup] Allergies Allergy/AdvReac Type Severity Reaction Status Date / Time No Known Allergies Allergy Verified 12/13/18 15:27 Review of Systems ROS Statement: Those systems with pertinent positive or pertinent negative responses have been documented in the HPI. ROS Other: All systems not noted in ROS Statement are negative. Past Medical History Past Medical History: No Reported History Additional Past Medical History / Comment(s): kidney stones History of Any Multi-Drug Resistant Organisms: None Reported Past Surgical History: No Surgical Hx Reported, Orthopedic Surgery Additional Past Surgical History / Comment(s): surgery on left wrist in 11/27/2017 Past Psychological History: Anxiety Smoking Status: Never smoker Past Alcohol Use History: None Reported Past Drug Use History: Marijuana General Exam - General Exam Comments Initial Comments: General: The patient is awake and alert, in no distress, and does not appear acutely ill. Eye: Pupils are equal, round and reactive to light, extra-ocular movements are intact. No nystagmus. There is normal conjunctiva bilaterally. No signs of icterus. Cardiovascular: There is a regular rate and rhythm. No murmur, rub or gallop is appreciated. Respiratory: Lungs are clear to auscultation, respirations are non-labored, breath sounds are equal. No wheezes, stridor, rales, or rhonchi. Musculoskeletal: Slightly limited range of motion of left wrist with flexion and extension at max movement. ROM normal of right wrist, no tenderness. Strength 5/5. Sensation intact. Radial pulses equal bilaterally 2+. Patient is able to make the okay fingers crossed thumbs up finger opposition extend the wrist bilaterally. Ulnar radial and median nerve appear intact. Capillary refill less than 2 seconds. No abrasions or lacerations no swelling or erythema of the wrist Neurological: A&O x 3. CN II-XII intact, There are no obvious motor or sensory deficits. Coordination appears grossly intact. Speech is normal. Skin: Skin is warm and dry and no rashes or lesions are noted. Psychiatric: Cooperative, appropriate mood & affect, normal judgment. Limitations: no limitations Course Vital Signs 12/13/18 15:24 Temperature 98.6 F Pulse Rate 71 Respiratory 16 Rate Blood Pressure 150/89 O2 Sat by Pulse 97 Oximetry Medical Decision Making - Medical Decision Making 28-year-old presented for left wrist pain. Patient has chronic wrist pain states has been increased for the past few days. 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 Pt states he primarily presented for pain management of acute on chronic pain he states these "flares" happen, he is not concerned by the symptoms. Pt provided pain management in the ER, no changes on XR, no history of new trauma/injury. Pt is neurovascularly intact. At this time after discussing case with Dr. Suarez I feel pt is stable for discharge with outpatient orthopedic consultation. Pt is agreeable with plan and discharge today. Disposition Clinical Impression: Left wrist pain Disposition: HOME SELF-CARE Condition: Good Instructions (If sedation given, give patient instructions): Wrist Injury (ED) Additional Instructions: Please use medication as discussed. Please follow-up with orthopedic surgery as discussed.. Please return to emergency room if the symptoms increase or worsen or for any other concerns. Is patient prescribed a controlled substance at d/c from ED?: No Referrals: Donnie Carver MD [Primary Care Provider] - 1-2 days Sony Scott MD [STAFF PHYSICIAN] - 1-2 days Time of Disposition: 16:57
[2018-12-13] MEDS ORDERED: ACET/COD 300 MG/30 MG STARTER PACK 6 TAB BTL PO STA (17:00)
== END 2018-12-13 17:20 | disposition home or self-care (01) ==
LOC: EC 15:17
DX: G89.29 Other chronic pain (principal); M25.532 Pain in left wrist; Z98.890 Other specified postprocedural states
CPT/HCPCS: 99283

== ENCOUNTER 2019-07-14 09:47 | Emergency (ER) | payer OTHER ==
[2019-07-14 09:58] VITALS: RESP 18
[2019-07-14] MEDS ORDERED: ACETAMINOPHEN TAB 325 MG TAB PO STA (10:12)
--- NOTE | 2019-07-14 10:57 | ED ---
General Adult HPI - General Source: patient, RN notes reviewed, old records reviewed Mode of arrival: ambulatory Limitations: no limitations <Sony Ferraro - Last Filed: 07/14/19 11:19> <Joanne Escobar - Last Filed: 07/14/19 23:35> - General Chief complaint: Fall Stated complaint: fall/wrist & knee pain Time Seen by Provider: 07/14/19 10:06 - History of Present Illness Initial comments: 28-year-old male patient presents to ED for chief complaint of fall. Patient points that this morning he woke up, states that he was still very drowsy when he went to walk down approximate 6 days he stumbled. Patient reports that he had a fall on his outstretched left arm. Also reports hitting his left knee. Denies any trauma to head or neck. Denies a loss of consciousness. Patient had a surgery approximately one year ago in which her pain was placed in his left scaphoid bone. Patient has pain in this region. Patient reports that he is still ambulatory in the pain in his knee is anterior soreness. Denies any use of blood thinners. Denies any other complaints. Systemic: Pt denies fatigue, fever/chills, rash. Pt denies weakness, night sweats, weight loss. Neuro: Pt denies headache, visual disturbances, syncope or pre-syncope. HEENT: Pt denies ocular discharge or irritation, otalgia, rhinorrhea, phary ngitis or notable lymphadenopathy. Cardiopulmonary: Pt denies chest pain, SOB, heart palpitations, dyspnea on exertion. Abdominal/GI: Pt denies abdominal pain, n/v/d. : Pt denies dysuria, burning w/ urination, frequency/urgency. Denies new onset urinary or bowel incontinence. MSK: Pt denies myalgia, loss of strength or function in extremities. Neuro: Pt denies new onset weakness, paresthesias. (Sony Ferraro) - Related Data Home Medications Medication Instructions Recorded Confirmed Amoxicillin 500 mg PO TID 12/13/17 12/13/17 Fluticasone Nasal [place] [Flonase 2 spr EA NOSTRIL DAILY PRN 12/13/17 12/13/17 Nasal [place]] Multivitamins, Thera [Multivitamin 1 tab PO DAILY 12/13/17 12/13/17 (formulary)] Promethazine 6.25MG/5Ml [Phenergan 12.5 mg PO Q6H PRN 12/13/17 12/13/17 Syrup] Allergies Allergy/AdvReac Type Severity Reaction Status Date / Time No Known Allergies Allergy Verified 12/13/18 15:27 Review of Systems ROS Other: All systems not noted in ROS Statement are negative. <Sony Ferraro Cristobal - Last Filed: 07/14/19 11:19> ROS Other: All systems not noted in ROS Statement are negative. <Joanne Escobar - Last Filed: 07/14/19 23:35> ROS Statement: Those systems with pertinent positive or pertinent negative responses have been documented in the HPI. Past Medical History Past Medical History: No Reported History Additional Past Medical History / Comment(s): kidney stones History of Any Multi-Drug Resistant Organisms: None Reported Past Surgical History: Orthopedic Surgery Additional Past Surgical History / Comment(s): surgery on left wrist in 11/27/2017 Past Psychological History: Anxiety Smoking Status: Never smoker Past Alcohol Use History: None Reported Past Drug Use History: Marijuana <RonanSony J - Last Filed: 07/14/19 11:19> General Exam Limitations: no limitations <Sony Ferraro Cristobal - Last Filed: 07/14/19 11:19> - General Exam Comments Initial Comments: Constitutional: NAD, AOX3, Pt has pleasant affect. HEENT: NC/AT, trachea midline, neck supple, no lymphadenopathy. Posterior pharynx non erythematous, without exudates. External ears appear normal, without discharge. Mucous membranes moist. Eyes PERRLA, EOM intact. There is no scleral icterus. No pallor noted. Cardiopulmonary: RRR, no murmurs, rubs or gallops, no JVD noted. Lungs CTAB in anterior and posterior [place]faro. No peripheral edema. Abdominal exam: Abdomen soft and non-distended. Abdomen non-tender to palpation in all 4 quadrants. Bowel sounds active in LLQ. No hepatosplenomegaly. No ecchymosis Neuro: CN II-XII grossly intact. No nuchal rigidity. No raccon eyes, no peñaloza sign, no hemotympanum. No cervical spinal tenderness. MSK: Left snuffbox tenderness. Posterior range of motion of hand. No other areas of tenderness in upper extremities. Neurovascularly intact bilaterally. Right anterior lateral knee mildly tender to palpation. Patella nontender Full active range of motion. Neurovascular intact distally. No posterior calf tenderness bilaterally, homans sign negative bilaterally. Posterior tibialis and radial pulse +2 bilaterally. Sensation intact in upper and lower extremities. Full active ROM in upper and lower extremities, 5/5 stregnth. (Sony Ferraro) Course Vital Signs 07/14/19 07/14/19 09:53 11:29 Temperature 97.5 F L 98.2 F Pulse Rate 62 66 Respiratory 18 18 Rate Blood Pressure 127/85 122/69 O2 Sat by Pulse 97 97 Oximetry Medical Decision Making <Sony Ferraro - Last Filed: 07/14/19 11:19> <Joanne Escobar - Last Filed: 07/14/19 23:35> - Medical Decision Making 28-year-old male patient presents to the chief complaint of fall. Patient reportedly fell down approximate 6 days. Had a fall on outstretched arm with left arm. Mild trauma to his left knee. No trauma or neck no loss of consciousness. Patient vital signs stable, afebrile. Patient mostly concerned about left wrist as he had a scaphoid fracture in which there is a pin inserted and he is having pain in this region. Physical exam displayed left snuffbox tenderness. Right anterior lateral knee mildly tender to palpation. Patella nontender.. Plain films of left wrist displayed no definite fracture dislocation. Postsurgical changes. Plain film of knee displayed no acute fracture dislocation. Patient has full active range of motion of knee is ambulatory without difficulty. Patient placed in a thumb spica splint, neurovascularly intact after splint placement. Will follow up with orthopedic consult tomorrow. Return to ER physician worsens. Case discussed with Dr. Escobar. (Sony Ferraro) I was available for consultation in the emergency department. The history and physical exam were done by the midlevel provider. I was consulted for this patients care. I reviewed the case with the midlevel provider and based on thei r presentation of the patient, I agree with the assessment, medical decision making and plan of care as documented. Chart was dictated using [employer] dictation software. Attempts were made to correct any dictation errors however some typographical errors may persist. (Joanne Escobar) Disposition Is patient prescribed a controlled substance at d/c from ED?: No <Sony Ferraro - Last Filed: 07/14/19 11:19> <Joanne Escobar - Last Filed: 07/14/19 23:35> Clinical Impression: Fall, Wrist sprain Disposition: HOME SELF-CARE Condition: Stable Instructions (If sedation given, give patient instructions): Wrist Sprain (ED) Additional Instructions: Follow-up with primary care provider tomorrow. Return to ER if condition worsens. Follow with orthopedic consult tomorrow. Continue to wear splint. Referrals: Donnie Carver MD [Primary Care Provider] - 1-2 days Sony Scott MD [STAFF PHYSICIAN] - 1-2 days Hemanth Escalante DO [Medical Doctor] - 1-2 days
--- NOTE | 2019-07-14 10:58 | XR ---
EXAMINATION TYPE: XR knee complete RT DATE OF EXAM: 07/14/2019 COMPARISON: NONE HISTORY: Pain TECHNIQUE: Four views are submitted. FINDINGS: Joint spaces are preserved. Osseous structures are intact. No acute fracture seen. Small amount of fluid in the suprapatellar bursa. IMPRESSION: 1. No acute fracture or dislocation.
--- NOTE | 2019-07-14 10:59 | XR ---
EXAMINATION TYPE: XR hand complete LT DATE OF EXAM: 07/14/2019 COMPARISON: NONE HISTORY: Pain TECHNIQUE: Three views are submitted. FINDINGS: Sclerosis involving the distal radius appears chronic. There is a postsurgical change with nonunion f racture involving the scaphoid. Appears chronic. The joint spaces are preserved and there is no acute fracture or dislocation. IMPRESSION: 1. No definite acute fracture or dislocation if symptoms persist, follow-up study in 7 to 10 days wo uld be suggested. 2. Chronic scaphoid fracture with postsurgical change.
--- NOTE | 2019-07-14 11:01 | XR ---
EXAMINATION TYPE: XR wrist complete LT DATE OF EXAM: 07/14/2019 COMPARISON: 09/07/2017 HISTORY: Pain TECHNIQUE: Four views submitted. 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 There is an area of sclerosis inv olving the distal radius which is nonspecific. Punctate soft tissue calcification or ossification adj acent to the medial margin of the wrist noted. The joint spaces are preserved and there is no acute f racture or dislocation. IMPRESSION: 1. No definite acute fracture or dislocation if symptoms persist, follow-up study in 7 to 10 days wo uld be suggested. 2. Postsurgical change with chronic scaphoid fracture.
[2019-07-14 11:31] VITALS: BP 122/69; PULSE 66; TEMP 98.2
== END 2019-07-14 11:29 | disposition home or self-care (01) ==
LOC: EC 09:47
DX: S63.502A Unspecified sprain of left wrist, initial encounter (principal); W19.XXXA Unspecified fall, initial encounter
CPT/HCPCS: 29125; 99284

== ENCOUNTER 2020-07-01 03:17 | Emergency (ER) | payer OTHER ==
[2020-07-01] MEDS ORDERED: SODIUM CHLORIDE 0.9% 1,000 ML IV STA (03:59)
[2020-07-01] MEDS ORDERED: MECLIZINE 12.5 MG TAB PO STA (03:59)
[2020-07-01] MEDS ORDERED: ONDANSETRON 4 MG/2 ML VIAL IVP STA (03:59)
--- NOTE | 2020-07-01 04:02 | ED ---
Dizziness HPI - General Chief Complaint: Dizziness Stated Complaint: nausea,L ear problem Time Seen by Provider: 07/01/20 03:35 Source: patient, family Mode of arrival: wheelchair Limitations: no limitations - History of Present Illness MD Complaint: dizziness -: hour(s) Timing: sudden onset Description: "room spinning" History of Same: No History of Trauma: No Severity: severe Improves With: remaining still Worsens With: position Associated Symptoms: other (Nausea and vomiting) - Related Data Home Medications Medication Instructions Recorded Confirmed Amoxicillin 500 mg PO TID 12/13/17 12/13/17 Fluticasone Nasal [place] [Flonase 2 spr EA NOSTRIL DAILY PRN 12/13/17 12/13/17 Nasal [place]] Multivitamins, Thera [Multivitamin 1 tab PO DAILY 12/13/17 12/13/17 (formulary)] Promethazine 6.25MG/5Ml [Phenergan 12.5 mg PO Q6H PRN 12/13/17 12/13/17 Syrup] Previous Rx's Medication Instructions Recorded Meclizine [Antivert] 25 mg PO TID PRN #15 tab 07/01/20 Ondansetron Odt [Zofran ODT] 4 mg PO Q8HR PRN #10 tab 07/01/20 Allergies Allergy/AdvReac Type Severity Reaction Status Date / Time No Known Allergies Allergy Verified 07/01/20 03:26 Review of Systems ROS Statement: Those systems with pertinent positive or pertinent negative responses have been documented in the HPI. ROS Other: All systems not noted in ROS Statement are negative. Constitutional: Denies: fever, chills Respiratory: Denies: cough, dyspnea Cardiovascular: Denies: chest pain, palpitations Gastrointestinal: Reports: nausea. Denies: abdominal pain, vomiting, diarrhea Genitourinary: Denies: dysuria, hematuria Musculoskeletal: Denies: back pain Skin: Denies: rash Neurological: Denies: headache, weakness, numbness Past Medical History Past Medical History: No Reported History Additional Past Medical History / Comment(s): kidney stones History of Any Multi-Drug Resistant Organisms: None Reported Past Surgical History: Orthopedic Surgery Additional Past Surgical History / Comment(s): surgery on left wrist in 11/27/2017 Past Psychological History: Anxiety, Depression Smoking Status: Never smoker Past Alcohol Use History: Occasional Past Drug Use History: Marijuana General Exam Limitations: no limitations General appearance: alert, in no apparent distress Head exam: Present: atraumatic, normocephalic Eye exam: Present: normal appearance, PERRL, EOMI. Absent: scleral icterus, conjunctival injection, nystagmus ENT exam: Present: normal oropharynx, TM's normal bilaterally, normal external ear exam Neck exam: Present: normal inspection, full ROM Respiratory exam: Present: normal lung sounds bilaterally. Absent: respiratory distress, wheezes, rales, rhonchi, stridor Cardiovascular Exam: Present: regular rate, normal rhythm, normal heart sounds. Absent: systolic murmur, diastolic murmur, rubs, gallop GI/Abdominal exam: Present: soft. Absent: distended, tenderness, guarding, rebound, rigid, mass Extremities exam: Present: normal inspection, normal capillary refill. Absent: pedal edema, calf tenderness Neurological exam: Present: alert, oriented X3, CN II-XII intact. Absent: motor sensory deficit Skin exam: Present: warm, dry, intact, normal color. Absent: rash Course Vital Signs 07/01/20 03:21 Temperature 98.6 F Pulse Rate 90 Respiratory 22 Rate Blood Pressure 161/70 O2 Sat by Pulse 100 Oximetry EKG Findings - EKG Results: EKG: interpreted by PRAVIN, DANELLEL, sinus rhythm (Rate 75 bpm), normal axis, normal QRS, normal ST/T, no acute changes Medical Decision Making - Lab Data Result diagrams: 07/01/20 04:03 07/01/20 04:03 Lab Results 07/01/20 07/01/20 07/01/20 Range/Units 04:03 04:03 06:20 WBC 10.4 (3.8-10.6) k/uL RBC 4.93 (4.30-5.90) m/uL Hgb 15.1 (13.0-17.5) gm/dL Hct 43.3 (39.0-53.0) % MCV 87.8 (80.0-100.0) fL MCH 30.6 (25.0-35.0) pg MCHC 34.9 (31.0-37.0) g/dL RDW 11.7 (11.5-15.5) % Plt Count 303 (150-450) k/uL MPV 7.7 Neutrophils % 47 % Lymphocytes % 38 % Monocytes % 7 % Eosinophils % 4 % Basophils % 2 % Neutrophils # 4.9 (1.3-7.7) k/uL Lymphocytes # 3.9 (1.0-4.8) k/uL Monocytes # 0.7 (0-1.0) k/uL Eosinophils # 0.4 (0-0.7) k/uL Basophils # 0.2 (0-0.2) k/uL Sodium 136 L (137-145) mmol/L Potassium 3.7 (3.5-5.1) mmol/L Chloride 103 (98-107) mmol/L Carbon Dioxide 25 (22-30) mmol/L Anion Gap 8 mmol/L BUN 14 (9-20) mg/dL Creatinine 1.04 (0.66-1.25) mg/dL Est GFR (CKD-EPI)AfAm >90 (>60 ml/min/1.73 sqM) Est GFR (CKD-EPI)NonAf >90 (>60 ml/min/1.73 sqM) Glucose 115 H (74-99) mg/dL Calcium 9.7 (8.4-10.2) mg/dL Total Bilirubin 0.8 (0.2-1.3) mg/dL AST 33 (17-59) U/L ALT 30 (4-49) U/L Alkaline Phosphatase 108 (38-126) U/L Total Protein 6.9 (6.3-8.2) g/dL Albumin 4.3 (3.5-5.0) g/dL Urine Color Yellow Urine Appearance Turbid (Clear) Urine pH 8.0 (5.0-8.0) Ur Specific [place] 1.023 (1.001-1.035) Urine Protein Trace H (Negative) Urine Glucose (UA) Negative (Negative) Urine Ketones Negative (Negative) Urine Blood Negative (Negative) Urine Nitrite Negative (Negative) Urine Bilirubin Negative (Negative) Urine Urobilinogen <2.0 (<2.0) mg/dL Ur Leukocyte Esterase Negative (Negative) Urine RBC 1 (0-5) /hpf Urine WBC 4 (0-5) /hpf Ur Squamous Epith Cells <1 (0-4) /hpf Amorphous Sediment Rare H (None) /hpf Urine Mucus Few H (None) /hpf Urine Opiates Screen Not Detected (NotDetected) Ur Oxycodone Screen Not Detected (NotDetected) Urine Methadone Screen Not Detected (NotDetected) Ur Propoxyphene Screen Not Detected (NotDetected) Ur Barbiturates Screen Not Detected (NotDetected) U Tricyclic Antidepress Not Detected (NotDetected) Ur Phencyclidine Scrn Not Detected (NotDetected) Ur Amphetamines Screen Not Detected (NotDetected) U Methamphetamines Scrn Not Detected (NotDetected) U Benzodiazepines Scrn Not Detected (NotDetected) Urine Cocaine Screen Not Detected (NotDetected) U Marijuana (THC) Screen Detected H (NotDetected) Disposition Clinical Impression: Vertigo Disposition: HOME SELF-CARE Condition: Good Instructions (If sedation given, give patient instructions): Vertigo (ED) Prescriptions: Meclizine [Antivert] 25 mg PO TID PRN #15 tab PRN Reason: Vertigo Ondansetron Odt [Zofran ODT] 4 mg PO Q8HR PRN #10 tab PRN Reason: Nausea Is patient prescribed a controlled substance at d/c from ED?: No Referrals: None,Stated [Primary Care Provider] - 1-2 days Migel Frederick MD [STAFF PHYSICIAN] - 1-2 days
[2020-07-01 04:14] LABS: Basophils # (A) 0.2 k/uL (0-0.2); Basophils % (A) 2 %; Eosinophils # (A) 0.4 k/uL (0-0.7); Eosinophils % (A) 4 %; HCT 43.3 % (39.0-53.0); HGB 15.1 gm/dL (13.0-17.5); Lymphocytes # (A) 3.9 k/uL (1.0-4.8); Lymphocytes % (A) 38 %; MCH 30.6 pg (25.0-35.0); MCHC 34.9 g/dL (31.0-37.0); MCV 87.8 fL (80.0-100.0); Mean Platelet Volume 7.7; Monocytes # (A) 0.7 k/uL (0-1.0); Monocytes % (A) 7 %; Neutrophils # (A) 4.9 k/uL (1.3-7.7); Neutrophils % (A) 47 %; Platelet Count 303 k/uL (150-450); RBC 4.93 m/uL (4.30-5.90); RDW 11.7 % (11.5-15.5); WBC 10.4 k/uL (3.8-10.6)
[2020-07-01 04:24] LABS: ALT 30 U/L (4-49); AST 33 U/L (17-59); African American GFR (CKD) >90 (>60 ml/min/1.73 sqM); Albumin 4.3 g/dL (3.5-5.0); Alkaline Phosphatase 108 U/L (38-126); Anion Gap 8 mmol/L; Blood Urea Nitrogen 14 mg/dL (9-20); Calcium 9.7 mg/dL (8.4-10.2); Carbon Dioxide 25 mmol/L (22-30); Chloride 103 mmol/L (98-107); Glucose 115 mg/dL (74-99); Non-African American GFR(CKD) >90 (>60 ml/min/1.73 sqM); Potassium 3.7 mmol/L (3.5-5.1); Sodium 136 mmol/L (137-145); Total Bilirubin 0.8 mg/dL (0.2-1.3); Total Protein 6.9 g/dL (6.3-8.2)
[2020-07-01] MEDS ORDERED: METOCLOPRAMIDE 5 MG/ML 2 ML VIAL IVP STA ×2 (05:17→06:45)
[2020-07-01 06:37] LABS: Amorphous Sediment,Urine Rare /hpf; Appearance,Urine Turbid (Clear); Bilirubin,Urine Negative (Negative); Blood,Urine Negative (Negative); Color,Urine Yellow; Glucose,Urine (UA) Negative (Negative); Ketones,Urine Negative (Negative); Leukocyte Esterase,Urine Negative (Negative); Mucus,Urine Few /hpf; Nitrite,Urine Negative (Negative); Protein,Urine Trace (Negative); RBC,Urine 1 /hpf (0-5); Specific Gravity,Urine 1.023 (1.001-1.035); Squamous Epithelial Cell,Urine <1 /hpf (0-4); Urobilinogen,Urine <2.0 mg/dL (<2.0); WBC,Urine 4 /hpf (0-5)
[2020-07-01 06:43] LABS: Amphetamine Screen,Urine Not Detected (NotDetected); Barbiturate Screen,Urine Not Detected (NotDetected); Benzodiazepines Screen,Urine Not Detected (NotDetected); Cocaine Screen,Urine Not Detected (NotDetected); Methadone Screen, Urine Not Detected (NotDetected); Opiate Screen,Urine Not Detected (NotDetected); Oxycodone Screen, Urine Not Detected (NotDetected); Phencyclidine Screen,Urine Not Detected (NotDetected); Tricyclic Antidepressant,Urine Not Detected (NotDetected); Urn Cannabinoid Scrn Detected (NotDetected)
[2020-07-01 07:01] VITALS: BP 120/81; PULSE 85; RESP 18; TEMP 98.4
== END 2020-07-01 07:07 | disposition home or self-care (01) ==
LOC: EC 03:17
DX: R42 Dizziness and giddiness (principal); R11.2 Nausea with vomiting, unspecified
CPT/HCPCS: 36415; 93005; 80053; 85025; 81001; 80306; 99284; 96374; 96375; 96376; 96361; J2765; J2405

== ENCOUNTER 2021-06-08 20:02 | Emergency (ER) | payer OTHER ==
[2021-06-08 20:19] VITALS: BP 131/79; PULSE 79; RESP 20; TEMP 98
[2021-06-08] MEDS ORDERED: SODIUM CHLORIDE 0.9% 1,000 ML IV STA (20:32)
[2021-06-08] MEDS ORDERED: KETOROLAC 15 MG/ML 1 ML VIAL IVP STA (20:32)
[2021-06-08] MEDS ORDERED: ONDANSETRON 4 MG/2 ML VIAL IVP STA (20:32)
--- NOTE | 2021-06-08 20:38 | ED ---
General Adult HPI - General Chief complaint: Abdominal Pain Stated complaint: Back,abd pain Time Seen by Provider: 06/08/21 20:23 Source: patient Mode of arrival: ambulatory Limitations: no limitations - History of Present Illness Initial comments: 30-year-old male presents to the emergency Department with complaints of left flank pain that radiates to the left lower abdomen, sudden onset this evening. Reports pain is also accompanied by nausea and diaphoresis. Patient states his pain is very similar to previous kidney stones. Patient states he did not take anything for pain prior to arrival. Denies fever, chills, headache, vomiting, constipation, diarrhea, hematuria, and dysuria. - Related Data Home Medications Medication Instructions Recorded Confirmed Multivitamins, Thera [Multivitamin 1 tab PO DAILY 12/13/17 06/08/21 (formulary)] Cholecalciferol [Vitamin D3 (25 25 mcg PO DAILY 06/08/21 06/08/21 Mcg = 1000 Iu)] Allergies Allergy/AdvReac Type Severity Reaction Status Date / Time No Known Allergies Allergy Verified 06/08/21 21:58 Review of Systems ROS Statement: Those systems with pertinent positive or pertinent negative responses have been documented in the HPI. ROS Other: All systems not noted in ROS Statement are negative. Past Medical History Past Medical History: No Reported History Additional Past Medical History / Comment(s): kidney stones History of Any Multi-Drug Resistant Organisms: None Reported Past Surgical History: Orthopedic Surgery Additional Past Surgical History / Comment(s): surgery on left wrist in 11/27/2017 Past Psychological History: Anxiety, Depression Smoking Status: Never smoker Past Alcohol Use History: Occasional Past Drug Use History: Marijuana General Exam Limitations: no limitations General appearance: alert, other (Well-developed, well-nourished male presents to the emergency department in moderate distress. Initial temperature 98.0, pulse 79, respirations 20, blood pressure 131/79, pulse ox 100% on room air.) ENT exam: Present: normal oropharynx, mucous membranes moist Respiratory exam: Present: normal lung sounds bilaterally. Absent: respiratory distress, wheezes, rales, rhonchi, stridor Cardiovascular Exam: Present: regular rate, normal rhythm, normal heart sounds. Absent: systolic murmur, diastolic murmur, rubs, gallop, clicks GI/Abdominal exam: Present: soft, guarding (Left flank and left lower quadrant pain), normal bowel sounds. Absent: distended, tenderness Back exam: Present: CVA tenderness (L) Neurological exam: Present: alert, oriented X3, CN II-XII intact Psychiatric exam: Present: normal affect Skin exam: Present: warm, dry, intact Course Vital Signs 06/08/21 20:17 Temperature 98.0 F Pulse Rate 79 Respiratory 20 Rate Blood Pressure 131/79 O2 Sat by Pulse 100 Oximetry - Reevaluation(s) Reevaluation #1: 06/08/21 22:07 Patient reports passing kidney stone while providing urine specimen. States he is pain-free and all symptoms have resolved. Medical Decision Making - Medical Decision Making 30-year-old male was evaluated for left flank pain. Upon exam, patient appears uncomfortable and is unable to lay still. Reports prior history of kidney stones and states this discomfort is very similar. Patient was given 1 L of IV fluid, Zofran, and Toradol with improvement. Patient states he is quite certain the stone passed while he was in the bathroom providing a urine sample. Urine RBCs 81; remainder of lab work unremarkable. Symptoms have completely resolved. Patient will be discharged home to follow up with primary care as needed. Return parameters were discussed in detail. Patient verbalizes understanding and agrees with this plan. This patient's case was discussed with my attending Dr. Gabriel. - Lab Data Result diagrams: 06/08/21 20:58 06/08/21 20:58 Lab Results 06/08/21 06/08/21 06/08/21 Range/Units 20:58 20:58 22:28 WBC 7.3 (3.8-10.6) k/uL RBC 4.87 (4.30-5.90) m/uL Hgb 14.9 (13.0-17.5) gm/dL Hct 42.2 (39.0-53.0) % MCV 86.8 (80.0-100.0) fL MCH 30.7 (25.0-35.0) pg MCHC 35.3 (31.0-37.0) g/dL RDW 11.4 L (11.5-15.5) % Plt Count 283 (150-450) k/uL MPV 7.3 Neutrophils % 55 % Lymphocytes % 32 % Monocytes % 6 % Eosinophils % 2 % Basophils % 1 % Neutrophils # 4.0 (1.3-7.7) k/uL Lymphocytes # 2.4 (1.0-4.8) k/uL Monocytes # 0.5 (0-1.0) k/uL Eosinophils # 0.2 (0-0.7) k/uL Basophils # 0.0 (0-0.2) k/uL Sodium 138 (137-145) mmol/L Potassium 3.5 (3.5-5.1) mmol/L Chloride 104 (98-107) mmol/L Carbon Dioxide 25 (22-30) mmol/L Anion Gap 9 mmol/L BUN 15 (9-20) mg/dL Creatinine 1.18 (0.66-1.25) mg/dL Est GFR (CKD-EPI)AfAm >90 (>60 ml/min/1.73 sqM) Est GFR (CKD-EPI)NonAf 82 (>60 ml/min/1.73 sqM) Glucose 123 H (74-99) mg/dL Calcium 10.1 (8.4-10.2) mg/dL Urine Color Yellow Urine Appearance Cloudy (Clear) Urine pH 8.0 (5.0-8.0) Ur Specific [place] 1.019 (1.001-1.035) Urine Protein Trace H (Negative) Urine Glucose (UA) Negative (Negative) Urine Ketones Negative (Negative) Urine Blood Negative (Negative) Urine Nitrite Negative (Negative) Urine Bilirubin Negative (Negative) Urine Urobilinogen 2.0 (<2.0) mg/dL Ur Leukocyte Esterase Negative (Negative) Urine RBC 81 H (0-5) /hpf Urine WBC 1 (0-5) /hpf Amorphous Sediment Rare H (None) /hpf Urine Mucus Rare H (None) /hpf Disposition Clinical Impression: Renal calculus Disposition: HOME SELF-CARE Condition: Stable Instructions (If sedation given, give patient instructions): Kidney Stones (ED) Additional Instructions: Increase fluids. Follow-up with your primary care provider for a recheck as needed. Return to the emergency department with any new, worsening, or concerning symptoms. Is patient prescribed a controlled substance at d/c from ED?: No Referrals: None,Stated [Primary Care Provider] - 1-2 days Time of Disposition: 23:08
[2021-06-08 21:14] LABS: African American GFR (CKD) >90 (>60 ml/min/1.73 sqM); Anion Gap 9 mmol/L; Blood Urea Nitrogen 15 mg/dL (9-20); Calcium 10.1 mg/dL (8.4-10.2); Carbon Dioxide 25 mmol/L (22-30); Chloride 104 mmol/L (98-107); Glucose 123 mg/dL (74-99); Non-African American GFR(CKD) 82 (>60 ml/min/1.73 sqM); Potassium 3.5 mmol/L (3.5-5.1); Sodium 138 mmol/L (137-145)
[2021-06-08 21:26] LABS: Basophils % (A) 1 %; Eosinophils # (A) 0.2 k/uL (0-0.7); Eosinophils % (A) 2 %; HCT 42.2 % (39.0-53.0); HGB 14.9 gm/dL (13.0-17.5); Lymphocytes # (A) 2.4 k/uL (1.0-4.8); Lymphocytes % (A) 32 %; MCH 30.7 pg (25.0-35.0); MCHC 35.3 g/dL (31.0-37.0); MCV 86.8 fL (80.0-100.0); Mean Platelet Volume 7.3; Monocytes # (A) 0.5 k/uL (0-1.0); Monocytes % (A) 6 %; Neutrophils % (A) 55 %; Platelet Count 283 k/uL (150-450); RBC 4.87 m/uL (4.30-5.90); RDW 11.4 % (11.5-15.5); WBC 7.3 k/uL (3.8-10.6)
[2021-06-08 22:43] LABS: Amorphous Sediment,Urine Rare /hpf; Appearance,Urine Cloudy (Clear); Bilirubin,Urine Negative (Negative); Blood,Urine Negative (Negative); Color,Urine Yellow; Glucose,Urine (UA) Negative (Negative); Ketones,Urine Negative (Negative); Leukocyte Esterase,Urine Negative (Negative); Mucus,Urine Rare /hpf; Nitrite,Urine Negative (Negative); Protein,Urine Trace (Negative); RBC,Urine 81 /hpf (0-5); Specific Gravity,Urine 1.019 (1.001-1.035); WBC,Urine 1 /hpf (0-5)
== END 2021-06-09 00:01 | disposition home or self-care (01) ==
LOC: EC 20:02
DX: N20.0 Calculus of kidney (principal); F41.9 Anxiety disorder, unspecified; F32.9 Major depressive disorder, single episode, unspecified; F12.90 Cannabis use, unspecified, uncomplicated
CPT/HCPCS: 99284; 96374; 96375; 96361; 36415; 80048; 85025; 81001; J2405; J1885